=== PATIENT | female | born 1975 | race American Indian/Alaskan Native ===

== ENCOUNTER 2016-09-08 07:24 | Emergency (ER) | payer MEDICAID ==
[2016-09-08 08:05] LABS: Basophils % (Auto) 0.7 % (0.0-1.8); Eosinophils % (Auto) 5.4 % (0.0-4.3); Mean Corpuscular HGB Conc 30 % (30-34); Platelet Count 270 K/mm3 (140-440); Red Blood Count 4.98 M/mm3 (3.65-5.03); Red Cell Distribution Width 19.6 % (13.2-15.2); White Blood Count 6.8 K/mm3 (4.5-11.0)
[2016-09-08 08:09] LABS: Hemoglobin 8.3 gm/dl (10.1-14.3); Mean Corpuscular Hemoglobin 17 pg (28-32); Mean Corpuscular Volume 56 fl (79-97)
[2016-09-08 08:31] LABS: Alanine Aminotransferase 25 units/L (7-56); Albumin 4.6 g/dL (3.9-5); Albumin/Globulin Ratio 1.2 %; Alkaline Phosphatase 71 units/L (35-129); Anion Gap 24 mmol/L; Blood Urea Nitrogen 6 mg/dL (7-17); Calcium 9.2 mg/dL (8.4-10.2); Carbon Dioxide 21 mmol/L (22-30); Chloride 102.4 mmol/L (98-107); Glucose 179 mg/dL (65-100); Lipase 27 units/L (13-60); Potassium 3.9 mmol/L (3.6-5.0); Sodium 143 mmol/L (137-145); Total Protein 8.4 g/dL (6.3-8.2)
[2016-09-08 09:13] LABS: Bacteria,Urine 1+ /HPF (Negative); Bilirubin,Urine NEG (Negative); Blood,Urine NEG (Negative); Ketones,Urine NEG (Negative); Leukocyte Esterase,Urine NEG (Negative); Mucus,Urine FEW /HPF; Nitrite,Urine NEG (Negative); Urobilinogen,Urine < 2.0 mg/dL (<2.0)
--- NOTE | 2016-09-08 11:01 | Emergency Department Report ---
ED Chest Pain HPI - General Chief Complaint: Chest Pain Stated Complaint: CHEST PAIN,SOB Time Seen by Provider: 09/08/16 10:45 Source: patient Mode of arrival: Ambulatory Limitations: No Limitations - History of Present Illness Initial Comments: PATIENT STATED THAT SHE IS BEEN HAVING ON AND OFF CHEST PAIN AND SOB FOR THE LAST TWO MONTH. PATIENT STATED THAT SHE ALSO HAVE HEAVY PERIODS THAT CONTINUE FOR SEVEN DAYS. NO CHEST PAIN AT THIS MOMENT. MD Complaint: chest pain -: Gradual Onset: during exertion Pain Location: left chest Pain Radiation: none Severity scale (0 -10): 8 Quality: heaviness Consistency: intermittent Other Symptoms: denies: cough, fever, rash - Related Data Previous Rx's Medication Instructions Recorded Last Taken Type Ferrous Gluconate [Iron 236 MG tab] 236 mg PO QDAY #30 tablet 09/08/16 Unknown Rx Ondansetron [Zofran Odt] 4 mg PO Q8HR PRN #14 tab.rapdis 09/08/16 Unknown Rx traMADol [Ultram] 50 mg PO Q6HR PRN #14 tablet 09/08/16 Unknown Rx Allergies Allergy/AdvReac Type Severity Reaction Status Date / Time No Known Allergies Allergy Verified 09/08/16 07:35 Heart Score - HEART Score History: Moderately suspicious EKG: Non-specific Age: < 45 Risk factors: 1-2 risk factors Troponin: < normal limit HEART Score: 3 - Critical Actions Critical Actions: 0-3 pts:0.9-1.7%risk of adverse cardiac event.Candidate for discharge ED Review of Systems ROS: Stated complaint: CHEST PAIN,SOB Other details as noted in HPI Comment: All other systems reviewed and negative Constitutional: denies: diaphoresis, fever Respiratory: SOB with exertion. denies: cough, wheezing Cardiovascular: chest pain, palpitations. denies: paroxysmal nocturnal dyspnea Gastrointestinal: denies: abdominal pain, nausea, vomiting Genitourinary: abnormal menses. denies: dysuria Musculoskeletal: back pain, arthralgia, myalgia Neurological: denies: headache, weakness, numbness ED Past Medical Hx - Past Medical History Hx Hypertension: Yes Hx Congestive Heart Failure: Yes Additional medical history: ANEMIA - Surgical History Additional Surgical History: TUBAL LIGATION. RIGHT ANKLE (ORTHO) - Social History Smoking Status: Current Every Day Smoker Substance Use Type: Alcohol - Medications Home Medications: Home Medications Medication Instructions Recorded Confirmed Last Taken Type Ferrous Gluconate [Iron 236 MG tab] 236 mg PO QDAY #30 tablet 09/08/16 Unknown Rx Ondansetron [Zofran Odt] 4 mg PO Q8HR PRN #14 tab.rapdis 09/08/16 Unknown Rx traMADol [Ultram] 50 mg PO Q6HR PRN #14 tablet 09/08/16 Unknown Rx ED Physical Exam - General Limitations: No Limitations General appearance: alert - Head Head exam: Present: atraumatic - Eye Eye exam: Present: normal appearance - ENT ENT exam: Present: normal exam - Neck Neck exam: Present: normal inspection. Absent: tenderness, meningismus - Respiratory Respiratory exam: Present: normal lung sounds bilaterally. Absent: wheezes, rales, rhonchi - Cardiovascular Cardiovascular Exam: Present: regular rate, normal heart sounds - GI/Abdominal GI/Abdominal exam: Present: soft. Absent: distended, tenderness, guarding - Extremities Exam Extremities exam: Present: normal inspection, full ROM. Absent: pedal edema - Back Exam Back exam: Present: normal inspection - Neurological Exam Neurological exam: Present: alert, oriented X3, CN II-XII intact - Skin Skin exam: Present: warm, dry ED Course Vital Signs 09/08/16 09/08/16 09/08/16 07:25 10:04 10:15 Temperature 98.7 F Pulse Rate 103 H 88 93 H Respiratory 29 H 26 H 17 Rate Blood Pressure 149/107 154/102 Blood Pressure [Left] O2 Sat by Pulse 100 99 98 Oximetry 09/08/16 09/08/16 09/08/16 10:17 11:01 12:00 Temperature Pulse Rate 91 H 92 H Respiratory 20 27 H 18 Rate Blood Pressure 154/102 Blood Pressure 143/91 [Left] O2 Sat by Pulse 100 97 98 Oximetry - Reevaluation(s) Reevaluation #1: 09/08/16 13:11 PATIENT STATED THAT SHE DOESN'T HAVE ANY CHEST PAIN ED Medical Decision Making - Lab Data Result diagrams: 09/08/16 07:54 09/08/16 07:54 Critical care attestation.: If time is entered above; I have spent that time in minutes in the direct care of this critically ill patient, excluding procedure time. ED Disposition Clinical Impression: Atypical chest pain, Anemia Disposition: DC- TO HOME OR SELFCARE Is pt being admited?: No Does the pt Need Aspirin: No Condition: Stable Instructions: Chest Pain (ED) Prescriptions: Ferrous Gluconate [Iron 236 MG tab] 236 mg PO QDAY #30 tablet Ondansetron [Zofran Odt] 4 mg PO Q8HR PRN #14 tab.rapdis PRN Reason: Vomiting traMADol [Ultram] 50 mg PO Q6HR PRN #14 tablet PRN Reason: Pain Referrals: PRIMARY CARE, [Primary Care Provider] - 3-5 Days
--- NOTE | 2016-09-08 11:46 | XRay Report ---
Single view chest: History: Fever cough. HIV. Findings: Heart size is upper limit of normal. Trachea is midline. No consolidation, pneumothorax or pleural effusion. Impression: No acute cardiopulmonary findings.
[2016-09-08 12:23] VITALS: BP 143/91
[2016-09-08] MEDS ORDERED: TORADOL IM ONE (13:16)
== END 2016-09-08 13:25 | disposition home or self-care (01) ==
LOC: ED 07:24
DX: R07.89 Other chest pain (principal); D64.9 Anemia, unspecified; I10 Essential (primary) hypertension; F17.200 Nicotine dependence, unspecified, uncomplicated
CPT/HCPCS: 36415; 71010; 80053; 81001; 83690; 83880; 84484; 84703; 85025; 93005; 93010; 96372; 99285; J1885

== ENCOUNTER 2017-06-06 09:27 | Emergency (ER) | payer MEDICAID, OTHER ==
--- NOTE | 2017-06-06 09:54 | Emergency Department Report ---
ED General Adult HPI - General Chief complaint: Neuro Symptoms/Deficit Stated complaint: NUMBNESS IN FACE Time Seen by Provider: 06/06/17 09:50 Source: patient Mode of arrival: Ambulatory Limitations: No Limitations - History of Present Illness Initial comments: Numbness last night 1 went to bed and woke up this morning with numbness, elev bp w/ numbness to l side face and leg, doesn't think she was hyperventilating, failed a swallow screen in ed w/ elev bp of 177 systolic, on arrival, takes lisopril and states compliant w/ meds, last night she was having numbness all over, today it's more left sided w/ some ?swallowing problems, no cp, glu in ed finger stick 133.w/ elev bp -: Gradual, During the night, Last night Radiation: non-radiation Associated Symptoms: denies: chest pain, cough, diaphoresis, fever/chills, headaches, loss of appetite, malaise, nausea/vomiting, rash, seizure, shortness of breath, syncope, weakness - Related Data Previous Rx's Medication Instructions Recorded Last Taken Type Ferrous Gluconate [Iron 236 MG tab] 236 mg PO QDAY #30 tablet 09/08/16 Unknown Rx Ondansetron [Zofran Odt] 4 mg PO Q8HR PRN #14 tab.rapdis 09/08/16 Unknown Rx traMADol [Ultram] 50 mg PO Q6HR PRN #14 tablet 09/08/16 Unknown Rx Allergies Allergy/AdvReac Type Severity Reaction Status Date / Time No Known Allergies Allergy Verified 09/08/16 07:35 ED Review of Systems ROS: Stated complaint: NUMBNESS IN FACE Other details as noted in HPI Comment: All other systems reviewed and negative Constitutional: denies: diaphoresis, fever, malaise Eyes: denies: eye discharge, vision change ENT: denies: dental pain, hearing loss, epistaxis Respiratory: denies: orthopnea, shortness of breath, SOB with exertion, SOB at rest, stridor Cardiovascular: denies: chest pain, palpitations, dyspnea on exertion, orthopnea , syncope Gastrointestinal: denies: abdominal pain, nausea, vomiting, diarrhea, constipation, hematemesis, melena Neurological: numbness. denies: headache, weakness, confusion, abnormal gait, vertigo ED Past Medical Hx - Past Medical History Previous Medical History?: Yes Hx Hypertension: Yes Hx Congestive Heart Failure: Yes Additional medical history: ANEMIA, CHF - Surgical History Additional Surgical History: TUBAL LIGATION. RIGHT ANKLE (ORTHO) - Social History Smoking Status: Current Every Day Smoker Substance Use Type: None - Medications Home Medications: Home Medications Medication Instructions Recorded Confirmed Last Taken Type Ferrous Gluconate [Iron 236 MG tab] 236 mg PO QDAY #30 tablet 09/08/16 Unknown Rx Ondansetron [Zofran Odt] 4 mg PO Q8HR PRN #14 tab.rapdis 09/08/16 Unknown Rx traMADol [Ultram] 50 mg PO Q6HR PRN #14 tablet 09/08/16 Unknown Rx ED Physical Exam - General Limitations: No Limitations General appearance: alert, anxious - Head Head exam: Present: atraumatic, normocephalic - Eye Eye exam: Present: PERRL, EOMI - ENT ENT exam: Present: normal exam, normal orophraynx - Neck Neck exam: Present: normal inspection. Absent: tenderness, meningismus - Respiratory Respiratory exam: Present: normal lung sounds bilaterally. Absent: respiratory distress, wheezes, rales, rhonchi, stridor, chest wall tenderness, accessory muscle use, decreased breath sounds, prolonged expiratory - Cardiovascular Cardiovascular Exam: Present: regular rate, normal rhythm - GI/Abdominal GI/Abdominal exam: Present: soft. Absent: tenderness, guarding, rebound, rigid , mass, bruit, pulsatile mass - Extremities Exam Extremities exam: Present: normal inspection, normal capillary refill. Absent: pedal edema, joint swelling, calf tenderness - Neurological Exam Neurological exam: Present: alert, oriented X3, motor sensory deficit (left- sided facial numbness with possible slurred speech) - Skin Skin exam: Present: warm, dry. Absent: cyanosis, diaphoretic, erythema, urticaria, vesicles, petechiae ED Course Vital Signs 06/06/17 06/06/17 06/06/17 09:33 09:51 09:58 Temperature 97.7 F Pulse Rate 107 H 97 H Respiratory 19 18 Rate Blood Pressure 197/143 200/137 Blood Pressure 200/137 [Left] O2 Sat by Pulse 98 100 100 Oximetry 06/06/17 06/06/17 06/06/17 10:00 10:15 10:30 Temperature Pulse Rate 94 H 88 100 H Respiratory 25 H 19 22 Rate Blood Pressure 177/122 165/106 185/134 Blood Pressure [Left] O2 Sat by Pulse 98 99 99 Oximetry 06/06/17 06/06/17 10:31 10:45 Temperature Pulse Rate 92 H Respiratory 18 20 Rate Blood Pressure 177/132 Blood Pressure [Left] O2 Sat by Pulse 99 Oximetry ED Medical Decision Making - Lab Data Result diagrams: 06/06/17 09:55 06/06/17 09:55 - Radiology Data Radiology results: report reviewed - Medical Decision Making Patient was placed in a couple stroke however symptoms started occur essentially last night she had the symptoms when she woke up. CT showed no acute process. She did receive labetalol for elevated blood pressure. At did discuss case with Dr. Rivera who will admit for further evaluation of hypertensive emergency with left-sided facial numbness for a possible MRI further evaluation of possible TIA versus CVA versus other. Patient is stable to suffer abdomen complaining of left-sided facial numbness intermittent whole body numbness elevated blood pressure with history of lisinopril use that she says she is compliant with. Critical care attestation.: If time is entered above; I have spent that time in minutes in the direct care of this critically ill patient, excluding procedure time. ED Disposition Clinical Impression: Hypertensive crisis, Left facial numbness Disposition: - OP ADMIT IP TO THIS HOSP Is pt being admited?: Yes Condition: Stable Referrals: DR REESE HANNA [Other] - 3-5 Days Time of Disposition: 12:37
--- NOTE | 2017-06-06 09:58 | Cat Scan Report ---
HEAD CT WITHOUT CONTRAST INDICATION: Neurologic deficits less than 6 hours or symptoms present upon awakening. 98N. COMPARISON: None similar. FINDINGS: Noncontrast head CT demonstrates normal ventricles and sulci without definite acute or recent infarct, hemorrhage, mass effect or midline shift. No abnormal extra-axial fluid collections. Posterior fossa structures and basilar cisterns within normal limits. Normal imaged eye globes. Leftward nasal septal deviation anteriorly partially imaged as also right maxillary sinus mucosal thickening. Clear remainder imaged paranasal sinuses and mastoid air cells. Slight atherosclerotic ICA calcifications. Intact calvarium. CONCLUSION: No acute intracranial CT abnormality with few other findings, as above. MRI is more sensitive for detection of acute infarct and may be useful for further evaluation in the setting of a focal neurologic deficit. I phoned the above results to Dr. Marie in the ER, 9:50 AM, 06/06/2017. Thank you for the opportunity to participate in this patient's care.
[2017-06-06 10:03] LABS: Basophils % (Auto) 0.4 % (0.0-1.8); Eosinophils # (Auto) 0.4 K/mm3 (0.0-0.4); Hematocrit 41.7 % (30.3-42.9); Hemoglobin 13.9 gm/dl (10.1-14.3); Lymphocytes # (Auto) 1.9 K/mm3 (1.2-5.4); Lymphocytes % (Auto) 22.3 % (13.4-35.0); Mean Corpuscular HGB Conc 33 % (30-34); Mean Corpuscular Hemoglobin 25 pg (28-32); Mean Corpuscular Volume 76 fl (79-97); Monocytes # (Auto) 0.5 K/mm3 (0.0-0.8); Monocytes % (Auto) 6.1 % (0.0-7.3); Platelet Count 233 K/mm3 (140-440); Red Blood Count 5.49 M/mm3 (3.65-5.03); Red Cell Distribution Width 17.6 % (13.2-15.2)
[2017-06-06 10:13] LABS: INR 0.94 (0.87-1.13)
[2017-06-06 10:14] LABS: Partial Thromboplastin Time 25.1 Sec. (24.2-36.6)
[2017-06-06 10:16] LABS: BUN/Creatinine Ratio 12; Blood Urea Nitrogen 7 mg/dL (7-17); Calcium 8.6 mg/dL (8.4-10.2); Hemolysis Index 15
[2017-06-06] MEDS ORDERED: CATAPRES PO ONE (10:55)
[2017-06-06] MEDS ORDERED: NACL 0.9% 1000 ML 1,000 ML IV ONE ×2 (11:36→12:00)
[2017-06-06] MEDS ORDERED: NORMODYNE IV ONE (11:51)
[2017-06-06] MEDS ORDERED: ATIVAN ONE (14:36)
[2017-06-06] MEDS ORDERED: ATIVAN IV ONE (14:42)
--- NOTE | 2017-06-06 16:31 | Magnetic Resonance Report ---
FINAL REPORT EXAM: MR BRAIN WO/W CON HISTORY: stroke TECHNIQUE: Multiplanar MRI of the brain before and after the uneventful administration of IV contrast. PRIORS: CT brain of same date. FINDINGS: Brain volume is normal for age. No acute infarct seen on diffusion-weighted imaging. No parenchymal mass, mass-effect, hemorrhage, midline shift or hydrocephalus. No pathologic extra-axial fluid collection. No pineal region or sellar masses. No cerebellar tonsillar herniation. No abnormal enhancement. IMPRESSION: 1. No acute intracranial findings.
--- NOTE | 2017-06-06 16:38 | Magnetic Resonance Report ---
FINAL REPORT EXAM: MR MRA/MRV NECK WO/W CON HISTORY: stroke TECHNIQUE: Multiplanar MRA of carotid bifurcations after the uneventful administration of IV contrast. PRIORS: None. FINDINGS: Normal enhancement in the bilateral common, internal and external carotid arteries. Probable mild and possibly partially calcified plaque in medial aspect of right carotid bulb. Left carotid bifurcation has normal contour without significant plaque formation.No abnormal aneurysmal dilatation, apparent dissection, significant stenosis or occlusion. Vertebral arteries appear patent and symmetric. IMPRESSION: 1. < 50% carotid stenosis by NASCET criteria.
--- NOTE | 2017-06-06 17:09 | History and Physical Report ---
History of Present Illness Chief complaint: I got dizzy History of present illness: 42 YO Female with HTN, Anemia, Nicotine Dependence, Medication Noncompliance, CHF(Undocumented) presents to ED for evaluation. Pt found to have uncontrolled HTN, as well as neuro deficits out of proportion to exam and interview. Pt treated IAW stroke protocol, and antihypertensive therapy. Pt medically optimized and back to usual state of health. Pt symptoms resolved with therapy. Pt discharged home and instructed to f/u pcp 1wk, Neurology prn, and to continue prehospital medication. Past History Past Medical History: anemia, heart failure, hypertension Past Surgical History: Other (Tubal ligation, ankle surgery) Social history: single Family history: no significant family history (reviewed) Medications and Allergies Allergies Allergy/AdvReac Type Severity Reaction Status Date / Time No Known Allergies Allergy Verified 09/08/16 07:35 Home Medications Medication Instructions Recorded Confirmed Last Taken Type Ferrous Gluconate [Iron 236 MG tab] 236 mg PO QDAY #30 tablet 09/08/16 06/06/17 Unknown Rx Ascorbic Acid [Vitamin C with [place] 500 mg PO DAILY 06/06/17 06/06/17 Unknown History Hips] Aspirin [Adult Low Dose Aspirin EC] 81 mg PO DAILY 06/06/17 06/06/17 Unknown History Cyclopentolate HCl [Cyclogyl 1%] 1 drop OP TID 06/06/17 06/06/17 Unknown History Furosemide [Lasix] 20 mg PO QDAY 06/06/17 06/06/17 Unknown History Lisinopril [Zestril TAB] 40 mg PO QDAY 06/06/17 06/06/17 Unknown History Spironolactone [Aldactone] 25 mg PO QDAY 06/06/17 06/06/17 Unknown History Active Meds: Active Medications Aspirin (Aspirin) 325 mg PO QDAY VITOR Sodium Chloride (Nacl 0.9% 1000 Ml) 1,000 mls @ 75 mls/hr IV ONCE ONE Stop: 06/07/17 01:19 Last Admin: 06/06/17 12:01 Dose: 75 mls/hr Review of Systems Constitutional: no weight loss, no weight gain, no fever, no chills, no sweats Ears, nose, mouth and throat: no ear pain, no ear discharge, no tinnitis, no decreased hearing, no nose pain, no nasal congestion Breasts: no change in shape, no swelling, no mass Cardiovascular: no chest pain, no orthopnea, no palpitations, no rapid/ irregular heart beat, no edema, no syncope Respiratory: no cough, no cough with sputum, no excessive sputum, no hemoptysis , no shortness of breath Gastrointestinal: no abdominal pain, no nausea, no vomiting, no diarrhea, no constipation, no change in bowel habits, no hematemesis Genitourinary Female: no dyspareunia, no dysmenorrhea, no pelvic pain, no dysuria, no urinary frequency, no urgency Menstruation: no currently menstrual, no premenarcheal, no post hysterectomy, no ammenorrhea Rectal: no pain, no incontinence, no bleeding Musculoskeletal: no neck stiffness, no neck pain, no shooting arm pain, no arm numbness/tingling, no low back pain, no shooting leg pain, no leg numbness/ tingling Integumentary: no rash, no pruritis, no redness, no sores, no wounds, no jaundice Neurological: no head injury, no transient paralysis, no paralysis, no tremors, no ataxia Psychiatric: no anxiety, no memory loss, no change in sleep habits Endocrine: no cold intolerance, no heat intolerance, no polyphagia, no excessive thirst, no polyuria, no nocturia, no excessive sweating Hematologic/Lymphatic: no easy bruising, no easy bleeding, no lymphadenopathy, no lymphedema Allergic/Immunologic: no urticaria, no allergic rhinitis, no wheezing, no persistent infections, no gluten intolerance Exam - Constitutional Vitals: Temp Pulse Resp BP Pulse Ox 97.7 F 79 28 H 156/106 99 06/06/17 09:33 06/06/17 13:30 06/06/17 13:30 06/06/17 13:30 06/06/17 13:30 General appearance: Present: no acute distress, well-nourished - EENT Eyes: Present: PERRL ENT: hearing intact, clear oral mucosa - Neck Neck: Present: supple, normal ROM - Respiratory Respiratory effort: normal Respiratory: bilateral: CTA - Cardiovascular Heart Sounds: Present: S1 & S2. Absent: rub, click - Extremities Extremities: pulses symmetrical, No edema Peripheral Pulses: within normal limits - Abdominal General gastrointestinal: Present: soft, non-tender, non-distended, normal bowel sounds Female genitourinary: Present: normal - Integumentary Integumentary: Present: clear, warm, dry - Musculoskeletal Musculoskeletal: gait normal, strength equal bilaterally - Psychiatric Psychiatric: appropriate mood/affect, intact judgment & insight - Neurologic Neurologic: CNII-XII intact, moves all extremities Results - Labs CBC & Chem 7: 06/06/17 09:55 06/06/17 09:55 Labs: Abnormal lab results 06/06/17 06/06/17 06/06/17 Range/Units 09:46 09:55 09:55 RBC 5.49 H (3.65-5.03) M/mm3 MCV 76 L (79-97) fl MCH 25 L (28-32) pg RDW 17.6 H (13.2-15.2) % Eos % (Auto) 5.0 H (0.0-4.3) % Creatinine 0.6 L (0.7-1.2) mg/dL Glucose 174 H (65-100) mg/dL POC Glucose 177 H (70-105) 06/06/17 Range/Units 11:57 RBC (3.65-5.03) M/mm3 MCV (79-97) fl MCH (28-32) pg RDW (13.2-15.2) % Eos % (Auto) (0.0-4.3) % Creatinine (0.7-1.2) mg/dL Glucose (65-100) mg/dL POC Glucose 136 H (70-105) Assessment and Plan - Patient Problems (1) Uncontrolled hypertension Status: Acute Plan to address problem: Secondary to medication noncompliance, Pt restarted on home medication. Pt instructed to f/u pcp 1wk, neurology prn. Securty notifitied, Pt became verbally abusive to staff and used profane language when notified of discharge.
[2017-06-06 19:28] VITALS: BP 151/100
[2017-06-07] MEDS ORDERED: ASPIRIN PO SCH (12:22)
== END 2017-06-06 19:28 | disposition admitted as inpatient to this hospital (09) ==
LOC: ED 09:27
DX: I16.0 Hypertensive urgency (principal); R20.0 Anesthesia of skin; F17.200 Nicotine dependence, unspecified, uncomplicated; Z98.51 Tubal ligation status; Z86.79 Personal history of other diseases of the circulatory system; Z86.2 Personal history of diseases of the blood and blood-forming organs and certain disorders involving the immune mechanism
CPT/HCPCS: 36415; 70450; 70549; 70553; 80048; 82962; 84484; 84703; 85025; 85610; 85670; 85730; 93005; 93010; 96361; 96374; 99284; A9577; J2060; J7030; 96375